=== PATIENT | female | born 1990 | race Caucasian/White ===

== ENCOUNTER 2016-12-03 17:41 | Emergency (ER) | payer OTHER ==
[~2016-12-03] VITALS: Ht 170.2 cm; Wt 65.8 kg
[~2016-12-03 17:41] MED LIST: BIRTH CONTROL PO; EPIN0.3P3 IM; HYDR-757 PO; HYOS0.1217 PO; MULT-974 PO; PNT40TEC PO; POTA10CA43 PO; POTA20TA15 PO; SPRINTEC; SUCR1TAB PO; SUCR1TAB23 PO; SULF1TAB35 PO
--- NOTE | 2016-12-03 18:08 | ED Upper Extremity ---
General Chief Complaint: Upper Extremity Stated Complaint: LT WRIST INJ Source: patient Exam Limitations: no limitations History of Present Illness Time seen by provider: 18:06 Initial Comments To ER with pain in the left wrist accompanied by a popping sensation this evening. She has a history of a ligamentous injury to the right wrist that required surgical fixation and she has been following with Dr. Renae. Today while at work she was opening a car door and felt a pop in her wrist and had subsequent pain. The pain does not radiate. There is no swelling or bruising. She's had to use her left hand more than she typically does because of the right wrist being in a splint. She would like an MRI of the left wrist tonight to evaluate for ligament injury. Additionally, her blood pressure is noted to be very high in the 180s to 190s systolic over 130s to 140s diastolic range. She states that she does have a history of 5 blood pressure but does not take her blood pressure medication at home because "I don't like the way to it makes me feel". Onset: this evening Severity: moderate Pain/Injury Location: right wrist Modifying Factors: Worse With Movement Allergies and Home Medications Allergies Coded Allergies: amoxicillin (Unverified Allergy, Unknown, 06/14/14) Home Medications No Active Prescriptions or Reported Meds Constitutional: see HPI EENTM: see HPI Respiratory: no symptoms reported Cardiovascular: no symptoms reported Genitourinary: no symptoms reported Musculoskeletal: see HPI Skin: no symptoms reported Psychiatric/Neurological: No Symptoms Reported Past Lykutqv-Bcqmrl-Sufzmp Hx Patient Social History Recent Foreign Travel: No Contact w/Someone Who Travel: No Recent Hopitalizations: No Immunizations Up To Date Tetanus Booster (TDap): Less than 5yrs Seasonal Allergies Seasonal Allergies: Yes Surgeries HX Surgeries: Yes (WISDOM TEETH, EGD. ) Surgeries: Tonsillectomy Respiratory Hx Respiratory Disorders: No Cardiovascular Hx Cardiac Disorders: Yes Cardiac Disorders: Syncope Neurological Hx Neurological Disorders: No Genitourinary Hx Genitourinary Disorders: No Gastrointestinal Hx Gastrointestinal Disorders: Yes Gastrointestinal Disorders: Gastroesophageal Reflux, Ulcer Musculoskeletal Hx Musculoskeletal Disorders: No Endocrine Hx Endocrine Disorders: No HEENT HX ENT Disorders: No Cancer Hx Cancer: No Psychosocial Hx Psychiatric Problems: No Integumentary HX Skin/Integumentary Disorder: No Blood Transfusions Hx Blood Disorders: No Adverse Reaction to a Blood Tr: No Family Medical History Significant Family History: No Pertinent Family Hx, Cancer Physical Exam Vital Signs Vital Sign - Last 12Hours 12/03/16 18:04 Temp 98.0 Pulse 83 Resp 18 B/P (MAP) 201/143 Pulse Ox 99 Capillary Refill : General Appearance: WD/WN, no apparent distress HEENT: PERRL/EOMI, normal ENT inspection Neck: non-tender, full range of motion Cardiovascular: regular rate, rhythm, no murmur Respiratory: normal breath sounds, no respiratory distress, no accessory muscle use Gastrointestinal: normal bowel sounds, non tender, soft Shoulder: normal inspection, non-tender Elbow/Forearm: normal inspection, non-tender, Left Wrist: Yes normal inspection, Yes non-tender, No deformity, No ecchymosis, No limited ROM, Yes pain, Yes soft tissue tenderness, No swelling Hand: normal inspection, non-tender, Left Neurologic/Psychiatric: alert, normal mood/affect, oriented x 3 Progress/Results/Core Measures Results/Orders My Orders Orders - KRISTEN NOLASCO APRN Wrist, Left, 3 Views Or More (12/03/16 18:11) Clonidine Tablet (Catapres Tablet) (12/03/16 18:42) Medications Given in ED Current Medications Medications Dose Ordered Sig/Karly Route Start Time Stop Time Status Last Admin Dose Admin Clonidine HCl 0.1 mg STK-MED ONCE .ROUTE 12/03/16 18:42 12/03/16 18:49 DC 12/03/16 18:49 0.1 MG Vital Signs/I&O Vital Sign - Last 12Hours 12/03/16 18:04 Temp 98.0 Pulse 83 Resp 18 B/P (MAP) 201/143 Pulse Ox 99 Departure Communication Progress Notes I did suggest that she take a blood pressure pill here to really lower her blood pressure while she is awaiting x-ray results. She declines because she does not believe that will be covered under Workmen's Comp.she will take one of her blood pressure pills when she gets home. She states that she does have an adequate supply of blood pressure pills at home. She denies any symptoms from this such as chest pain, shortness of breath, headache, visual changes. I did discuss with her the need for further evaluation of her hypertension which should include lab work and renal artery ultrasound. She agrees to follow-up and have this done. Impression Impression: Primary Impression: Wrist sprain Additional Impression: Severe hypertension Disposition: HOME, SELF-CARE Condition: Stable Departure-Patient Inst. Decision time for Depature: 18:10 Referrals: NO,LOCAL PHYSICIAN (PCP/Family) Primary Care Physician Patient Instructions: Malignant Hypertension, Wrist Sprain (DC) Add. Discharge Instructions: 1. Call Dr. Renae tomorrow to make an appointment to further evaluate the cause of your left wrist pain 2. Please go home and take one of your blood pressure pills as soon as you go home 3. Follow-up with your regular physician for further evaluation of your high blood pressure which should include an ultrasound of the arteries the supply blood to your kidneys and lab work. All discharge instructions reviewed with patient and/or family. Voiced understanding. Scripts Amlodipine Besylate (Norvasc) 5 Mg Tablet 5 MG PO DAILY, #20 TAB Prov: KRISTEN NOLASCO APRN 12/03/16 Copy Copies To 1: ROCKY PALMER MD, PETER J APRN Dec 03, 2016 18:08
--- NOTE | 2016-12-03 18:30 | Diagnostic Imaging Report ---
INDICATION: Pain status post injury. COMPARISON: None. FINDINGS: Three views of the left wrist demonstrate no acute fracture or dislocation. There are no focal osseous lesions. No avascular necrosis is seen. The visualized soft tissue structures are unremarkable. The pronator fat pad is not displaced. There are no radio opaque foreign bodies. IMPRESSION: 1. No acute fracture or dislocation in the left wrist. Dictated by: Dictated on workstation # [id number]
[2016-12-03] MEDS ORDERED: cloNIDine 0.1 MG (CATAPRES) TAB ONE (18:42)
[2016-12-03 18:52] VITALS: BP 186/139
[2016-12-03] MEDS ORDERED: AMLO5TAB4 PO (18:52)
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
== END 2016-12-03 18:52 | disposition home or self-care (01) ==
LOC: EDUNIT# 17:41 → ER 17:47
DX: S63.502A Unspecified sprain of left wrist, initial encounter (principal); I10 Essential (primary) hypertension; K21.9 Gastro-esophageal reflux disease without esophagitis; Z87.19 Personal history of other diseases of the digestive system; Z90.89 Acquired absence of other organs; Z91.19 Patient's noncompliance with other medical treatment and regimen
CPT/HCPCS: 73110; 99283

== ENCOUNTER → 2017-01-21 | Outpatient (CLI) | payer OTHER ==
[~2017-01-21] MED LIST changes: +AMLO5TAB4 PO
[2017-01-21 12:22] LABS: BASOPHILS % (AUTO) 1 % (0-10); EOSINOPHILS # (AUTO) 0.2 10^3/uL (0.0-0.3); EOSINOPHILS % (AUTO) 3 % (0-10); LYMPHOCYTES # (AUTO) 2.3 X 10^3 (1.0-4.0); LYMPHOCYTES % (AUTO) 41 % (12-44); MEAN CORPUSCULAR HEMOGLOBIN 32 PG (25-34); MEAN CORPUSCULAR HGB CONC 33 G/DL (32-36); MEAN CORPUSCULAR VOLUME 95 FL (80-99); MEAN PLATELET VOLUME 11.1 FL (7.4-10.4); MONOCYTES # (AUTO) 0.5 X 10^3 (0.0-1.0); MONOCYTES % (AUTO) 9 % (0-12); NEUTROPHILS # (AUTO) 2.6 X 10^3 (1.8-7.8); NEUTROPHILS % (AUTO) 46 % (42-75); PLATELET COUNT 238 10^3/uL (130-400); RED BLOOD COUNT 4.51 10^6/uL (4.35-5.85); RED CELL DISTRIBUTION WIDTH 12.8 % (10.0-14.5); WHITE BLOOD COUNT 5.5 10^3/uL (4.3-11.0)
[2017-01-21 12:44] LABS: ALANINE AMINOTRANSFERASE 18 U/L (0-55); ALBUMIN 4.3 GM/DL (3.2-4.5); ANION GAP 7 MMOL/L (5-14); ASPARTATE AMINO TRANSFERASE 16 U/L (5-34); BILIRUBIN,TOTAL 0.3 MG/DL (0.1-1.0); BLOOD UREA NITROGEN 8 MG/DL (7-18); BUN/CREATININE RATIO 11; CALCIUM 9.8 MG/DL (8.5-10.1); CARBON DIOXIDE 29 MMOL/L (21-32); CHLORIDE 103 MMOL/L (98-107); CREATININE SERUM 0.76 MG/DL (0.60-1.30); GFR ESTIMATED > 60; GLUCOSE 86 MG/DL (70-105); SODIUM 139 MMOL/L (135-145); TOTAL PROTEIN 7.7 GM/DL (6.4-8.2)
[2017-01-21 13:04] LABS: THYROID STIMULATING HORMONE 1.72 UIU/ML (0.35-4.94)
== END ==
LOC: LAB 11:48
PROVIDERS: ATTEND Family Medicine
DX: I10 Essential (primary) hypertension (principal)
CPT/HCPCS: 36415; 80053; 84443; 85025